=== PATIENT | male | born 1965 | race Caucasian/White ===

== ENCOUNTER 2017-09-27 10:20 | Emergency (ER) | payer OTHER ==
[~2017-09-27] VITALS: Ht 180.3 cm; Wt 81.7 kg
[2017-09-27 10:55] LABS: HEMATOCRIT 38.4 % (42.0-52.0); HEMOGLOBIN 12.6 gm/dL (14.0-18.0); MCH 29.3 pg (26.0-34.0); MCHC 32.8 g/dL (28.0-37.0); MCV 89.2 fL (80.0-100.0); MPV 7.9 fl. (7.2-11.1); NUCLEATED RBCS 0 /100WBC; PLATELET COUNT* 267 thou/uL (150-400); WBC 14.7 thou/uL (4.0-11.0)
[2017-09-27 11:02] LABS: ANION GAP 8 mmol/L (7-16); BUN 8 mg/dL (7-18); CALCIUM 9.2 mg/dL (8.5-10.1); CHLORIDE 99 mmol/L (98-107); CO2 27 mmol/L (21-32); CREATININE 0.9 mg/dL (0.6-1.3); GLUCOSE 161 mg/dL (70-99); POTASSIUM 3.4 mmol/L (3.5-5.1); SODIUM 134 mmol/L (136-145)
[2017-09-27 11:09] LABS: ALBUMIN 2.9 g/dL (3.4-5.0); ALKALINE PHOSPHATASE 148 U/L (46-116); SGOT 23 U/L (15-37); SGPT 56 U/L (30-65); TOTAL BILIRUBIN 2.1 mg/dL (<0.1-1.0); TOTAL PROTEIN 7.7 g/dL (6.4-8.2); TROPONIN-I LEVEL <0.06 ng/mL (<0.06)
[2017-09-27 11:26] LABS: ABSOLUTE LYMPHOCYTES 1.3 thou/uL (0.8-5.3); ABSOLUTE MONOCYTES 0.9 thou/uL (0.0-1.2); ABSOLUTE NEUTROPHILS 12.5 thou/uL (1.6-8.1); ANISOCYTOSIS 1+; PLATELET ESTIMATE ADEQUATE; POIKILOCYTOSIS 1+
[2017-09-27 11:38] LABS: URINE BILIRUBIN NEGATIVE (Negative); URINE BLOOD NEGATIVE (Negative); URINE CLARITY CLEAR; URINE COLOR YELLOW; URINE GLUCOSE-RANDOM NEGATIVE (Negative); URINE KETONES NEGATIVE (Negative); URINE LEUKOCYTES-REFLEX NEGATIVE (Negative); URINE NITRITE-REFLEX NEGATIVE (Negative); URINE PROTEIN NEGATIVE (Negative); URINE SPECIFIC GRAVITY <= 1.005 (1.005-1.030); URINE UROBILINOGEN 0.2 E.U./dl (0.2-1.0)
[2017-09-27] MEDS ORDERED: LEVAQUIN 500 M500 M2 PO (13:21)
[2017-09-27 14:34] VITALS: BP 140/79
--- NOTE | 2017-09-28 10:24 | EKG ---
[place] [address] ELECTROCARDIOGRAM REPORT Name: KEESHA ORTIZ Room: [facility]#: [id number] Admission: 09/27/17 Attend Phys: Discharge: 09/27/17 Date of : 69 Report #: [id number] THIS REPORT FOR: //name// [facility] ED Test Date: 2017-09-27 Test Time: 10:46:19 Pat Name: KEESHA ORTIZ Department: Room: Gender: Shake Backboard Notcher: Elisha JOYCE : 1965 Requested By: Delaney Crandall Order Number: [id number] MD: Epifanio Stubbs Measurements Intervals [place] Rate: 101 P: 61 [place]: 138 QRS: 70 QRSD: 110 T: 6 QT: 339 QTc: 440 Interpretive Statements Sinus tachycardia Probable left atrial enlargement RSR' in V1 or V2, right VCD or RVH Borderline T abnormalities, inferior leads No previous ECG available for comparison Electronically Signed On 09-28-2017 10:24:01 CDT by Epifanio Stubbs [email or web address] <ELECTRONICALLY SIGNED> By: Epifanio Stubbs MD, [facility] 09/28/17 1024 1046 1046 Epifanio Stubbs MD, [facility] /EPI
== END 2017-09-27 14:36 | disposition home or self-care (01) ==
LOC: M.ERS 10:20
PROVIDERS: Physician Assistant Surgical
DX: J18.9 Pneumonia, unspecified organism (principal); R06.02 Shortness of breath; Z88.8 Allergy status to other drugs, medicaments and biological substances